=== PATIENT | male | born 1990 | race Caucasian/White ===

== ENCOUNTER → 2019-05-03 09:08 | Outpatient (CLI) | payer BC, SELFPAY ==
[2019-05-03] VITALS (9 sets, daily range): BP systolic 106–145; BP diastolic 53–87; PULSE 72–95; RESP 12–21; O2SAT 94–100; BMI 34.9
--- NOTE | 2019-05-03 | ASPIG_PTH ---
PATIENT: LUIS MANUEL ESTRADA LOC: CT U#:[id number] AGE/SX: 34/M ROOM: RE05/03/[address]: Dr. Laura Santizo MD : [id number] BED: DIS: SPEC #: [id number] RECD: 05/03/19 10:30 STATUS: DEANNA REDaniel #: [id number] CHIQUITA: 05/03/19 00:[address]: Laura Santizo DEPT: CYTOLOGY RECD BY: Adriana Lewis ENTERED: 05/03/19 11:10 SP TYPE: ASP OUT OTHR DR: Sade Morris, PRIMARY CARE NURSE-C Tissues: Spleen, NOS Procedures: FNA Specimen Adequacy Special Stain Group II Special Stain Group I Surgery Specimen Level IV AFB Stain (control) GMS Stain (control) Cytology Other HEADER OPERATION: CT guided splenic biopsy PRE-OP DIAGNOSIS: Mass in spleen TISSUE SUBMITTED: CT guided splenic biopsy DIAGNOSIS CYTOLOGY Splenic mass, CT-guided FNA (cytospin and cell block): Negative for malignant cells. Consistent with abscess formation. Special stains for acid fast bacilli and fungi are negative for organisms; matched controls are appropriate. See cytology study and comment. SJ:rg 05/04/19 COMMENT The specimen is evaluated at the time of CT by Dr. Butler. Immediate Evaluation = numerous neutrophils are noted, consistent with abscess formation. Correlation with clinical, radiologic findings and appropriate follow up are necessary. Result of culture studies will be reported separately. CYTOLOGY STUDY Slides are reviewed. The specimen entirely consists of neutrophils. CYTOLOGY GROSS Received is 22 ml of white turbid labeled with the patient's name, and designated spleen, CT-guided FNA. Four imprints are made from the submitted fluid A portion of the specimen is submitted for culture studies (aerobic, anaerobic, acid fast bacilli and fungal studies) and rest is submitted for cytology study including cell block preparation.. / CC:cc 05/03/19 TC:2 CPT: 08346, 66813, 96199 x2, 53492
--- NOTE | 2019-05-03 09:21 | CT_ITS ---
PROCEDURE: CT DIRECTED CORE SPLENIC BIOPSY INDICATION: Male, 28 years old. Hypodense lesion in the anterior lateral aspect of the spleen. PHYSICIAN: Dr. Jordon Tran CONSENT: Written informed consent was obtained having explained the risks, benefits and alternatives in detail with the patient who accepted the risks and agreed to proceed. Laboratory review and clinical assessment was performed. CONSCIOUS SEDATION PROTOCOL: The Drugs used were: 2 mg Versed, IV., and 100 mcg Fentanyl, IV. The sedation time was: 21 minutes. Conscious sedation was started at 10:01 AM and terminated at 10:22 AM. The conscious sedation protocol was independently monitored. RADIATION DOSAGE (If Supplied By Facility): CTDIvol = ( 15.5 ) mGy, DLP = ( 867.8 ) mGycm Individualized dose optimization techniques were used for this CT. TECHNIQUE: Using CT image guidance with image documentation, a suitable location in the anterior lateral aspect of the spleen was identified. Using an anterior approach, puncture of the spleen was uneventful with a 20 core needle system. 4, 20-gauge core samples were obtained, and submitted in formalin to the pathologist for further assessment. 22 cc of purulent material was aspirated from the lesion. The specimen was sent to the laboratory for analysis. Followup CT scan revealed no distinct sequelae. CT/Biopsy/Inj or Needle Placement IMPRESSION: 1. CT directed core needle biopsy of the spleen, using CT image guidance with image documentation as described. 2. Conscious Sedation protocol utilized with independent monitoring. Electronically Signed: Nacho Ruvalcaba, at 10:59 EDT , Service support ,
[2019-05-03 09:23] LABS: Hematocrit 35.9 % (40-54); Hemoglobin 10.8 g/dL (13.0-16.5); Mean Corp Hgb Conc 30.1 g/dL (32-36); Mean Corpuscular Hgb 22.5 pg (27.0-32.0); Mean Corpuscular Volume 74.6 fL (80-94); Mean Platelet Vol. 8.5 fl (6.2-12.0); Platelet Count 356 K/mm3 (150-450); RBC Distribution Width CV 13.6 % (11.6-14.6); RBC Distribution Width SD 36.4 fl (35.1-43.9); Red Blood Count 4.81 M/mm3 (4.6-6.2); White Blood Count 8.8 K/mm3 (4.4-11.0)
[2019-05-03 09:32] LABS: International Normalized Ratio 1.3; Prothrombin Time (Protime)PT. 15.7 SECONDS (11.7-14.9)
[2019-05-03 09:33] LABS: Partial Thromboplast Time 37.2 Seconds (24.1-36.2)
[2019-05-03] MEDS: Midazolam 2 MG/2 ML Syringe IV (10:01)
[2019-05-03] MEDS: fentaNYL 100 MCG/2 ML Ampul IV ×2 (10:03→10:20)
--- NOTE | 2019-05-03 11:19 | NURSING ---
PT C/O PAIN AT SITE OF DRAINAGE. REPORTS THAT LOCAL ANESTHETIC LIKELY WEARING OFF. PT TOLD HE IS ABLE TO TAKE AT HOME PAIN MEDICATIONS AND THAT HE SHOULD BE SURE NOT TO LIFT ANYTHING TODAY. PT HAS BEEN GIVEN ICE PACKS DURING RECOVERY. PT ALSO ADVISED THAT IF HOME PAIN MEDICATIONS DO NOT RESOLVE PAIN, PT SHOULD RETURN TO ED FOR EVALUATION.
== END ==
PROVIDERS: Family Provider Nurse Practitioner Family; PCP Nurse Practitioner Family; Referring Provider Internal Medicine Hematology & Oncology; Visit Provider Internal Medicine Hematology & Oncology
DX: D73.89 Other diseases of spleen (principal)
CPT/HCPCS: 38999; 36415; 77012; 85027; 85610; 85730; 87015; 87070; 87075; 87101; 87116; 87205; 87206; 88161; 88172; 88305; 88312; 88313; 99156; 99157; J7040; A4216